=== PATIENT | female | born 1985 | race Caucasian/White ===

== ENCOUNTER 2020-09-01 15:07 | Outpatient (CLI) | payer OTHER, SELFPAY ==
[2020-09-01 15:35] LABS: Basophils Absolute Auto 0.1 K/mm3 (0.0-0.1); Basophils Percent Auto 0.7 % (0.2-1.2); Eosinophils Absolute Auto 0.1 K/mm3 (0-0.3); Eosinophils Percent Auto 1.3 % (0-4.4); Hematocrit 37.4 % (37.0-47.0); Hemoglobin 12.8 g/dL (12.0-15.0); Immature Granulocyte Absolute 0.02 K/mm3 (0.00-0.031); Immature Granulocyte Percent A 0.2 % (0-0.5); Lymphocytes Absolute Auto 1.79 K/mm3 (0.9-3.2); Lymphocytes Percent Auto 19.8 % (18.3-44.2); Mean Corpuscular HGB Conc 34.2 g/dl (32-36); Mean Corpuscular Hemoglobin 29.2 pg (26-34); Mean Corpuscular Volume 85.2 fl (80-100); Mean Platelet Volume 9.5 fl (7.4-10.4); Monocytes Absolute Auto 0.7 K/mm3 (0.1-0.6); Monocytes Percent Auto 7.4 % (2.6-8.5); Neutrophils Absolute Auto 6.4 K/mm3 (1.3-6.7); Neutrophils Percent Auto 70.6 % (45.5-73.1); Platelet Count Result 250 k/mm3 (150-375); Red Blood Count 4.39 M/mm3 (4.2-5.4); Red Cell Distribution Width 12.7 % (11.5-14.5)
[2020-09-01 15:45] LABS: Alanine Aminotransferase 17 U/L (4-35); Albumin Level 4.7 g/dL (3.5-5.1); Alkaline Phosphatase 34 U/L (38-126); Anion Gap 7 mmol/L (8-16); Aspartate Amino Transferase 33 U/L (14-36); Bilirubin,Total 0.4 mg/dL (0.2-1.3); Blood Urea Nitrogen 10 mg/dL (7-17); Calcium 9.8 mg/dL (8.4-10.2); Carbon Dioxide 28 mmol/L (22-30); Chloride 104 mmol/L (98-107); Estimated Glomerular Filt Rate > 60; Glucose 103 mg/dL (65-105); Potassium 3.9 mmol/L (3.4-5.0); Sodium 139 mmol/L (137-145)
[2020-09-01 16:19] LABS: Vitamin D 25 Hydroxy 50.3 ng/mL
[2020-09-01 16:33] LABS: Thyroid Stimulating Hormone Reflex 0.458 uIU/mL (0.465-4.68)
[2020-09-02 08:09] LABS: Free T4 Free Thyroxine Reflex 0.94 ng/dL (0.78-2.19)
[2020-09-02 10:32] LABS: Total Triiodothyronine (T3) 1.25 NG/ML (0.97-1.69)
== END 2020-09-01 15:08 | disposition home or self-care (01) ==
PROVIDERS: PCP Family Medicine; Visit Provider Nurse Practitioner
DX: D64.9 Anemia, unspecified (principal); Z13.6 Encounter for screening for cardiovascular disorders; R53.83 Other fatigue; E55.9 Vitamin D deficiency, unspecified
CPT/HCPCS: 36415; 80053; 82306; 84439; 84443; 84480; 85025

== ENCOUNTER 2020-11-28 13:38 | Outpatient (CLI) | payer OTHER, SELFPAY ==
--- NOTE | ~2020-11-28 | MMUS_ITS ---
EXAMINATION: MM diag patrick implant BI w felicia, US breast RT limited HISTORY: Palpable right breast abnormality. TECHNIQUE: Additional 3-D tomosynthesis images of the breasts were performed and synthetic 2-D images were generated. CAD analysis was submitted and interpreted. High resolution Limited right breast ult rasound was performed. COMPARISON: None BREAST PARENCHYMAL COMPOSITION: The breasts are heterogenously dense, which may obscure small masses FINDINGS: MAMMOGRAPHIC FINDINGS: There are bilateral subpectoral silicone implants. There are no suspicious masses, calcifications or architectural distortion in either breast to suggest malignancy. ULTRASOUND: Limited right breast ultrasound: Normal heterogeneous echotexture without focal solid or cystic mass. IMPRESSION: 1. No evidence for malignancy in either breast. 2. Recommend follow-up screening ultrasound at age 40. BI-RADS Category 1: Negative Reviewed, dictated and finalized at location A. IMPRESSION: 1. No evidence for malignancy in either breast. 2. Recommend follow-up screening ultrasound at age 40. BI-RADS Category 1: Negative
== END 2020-11-28 13:39 | disposition home or self-care (01) ==
PROVIDERS: PCP Family Medicine; Visit Provider Obstetrics & Gynecology
DX: N63.0 Unspecified lump in unspecified breast (principal)
CPT/HCPCS: 76642; 77062; 77066; G0279

== ENCOUNTER 2021-02-15 13:07 | Outpatient (CLI) | payer OTHER, SELFPAY ==
--- NOTE | ~2021-02-15 | US_ITS ---
EXAMINATION: US pelvic complete w TV DATE: 02/15/2021 13:36 INDICATION: Menorrhagia Comparison:Ultrasound dated 12/11/2018 TECHNIQUE: Multiple transabdominal and endovaginal sonographic images of the pelvis performed. FINDINGS: The uterus measures 9.9 x 4.6 x 5.4 cm. Within the endometrium there is an echogenic area m easuring 2 x 1 x 1.7 cm with internal vascularity, consistent with a polyp. The endometrial complex m easures 1.4 cm. The right ovary measures 2.6 x 1.9 x 2.1 cm and the left ovary measures 3.6 x 2.8 x 3.2 cm. There is a 2.4 cm left ovarian cyst. There are small follicles in each ovary. Normal doppler signal in both ov shira. There is no free fluid in the pelvis. There are no abnormal masses seen on either side. IMPRESSION: 1. Echogenic vascular endometrial mass measuring 2 x 1 x 1.7 cm, compatible with polyp. 2: Endometrial thickening measuring 1.4 cm. 3: Left ovarian cyst measuring 2.4 cm. Reviewed, dictated and finalized at location B. OMIC DEVELOPER IMPRESSION: 1. Echogenic vascular endometrial mass measuring 2 x 1 x 1.7 cm, compatible wit h polyp. 2: Endometrial thickening measuring 1.4 cm. 3: Left ovarian cyst measuring 2.4 cm.
== END 2021-02-15 13:08 ==
PROVIDERS: Visit Provider Obstetrics & Gynecology
DX: N92.0 Excessive and frequent menstruation with regular cycle (principal); N83.202 Unspecified ovarian cyst, left side
CPT/HCPCS: 76830; 76856

== ENCOUNTER → 2021-03-03 00:44 | Outpatient (CLI) | payer OTHER, SELFPAY ==
[2021-03-03 18:01] LABS: SARS-CoV-2 RNA PCR Negative (Negative)
== END ==
PROVIDERS: Nurse Practitioner Family; Visit Provider Obstetrics & Gynecology
DX: Z01.812 Encounter for preprocedural laboratory examination (principal); Z20.822 Contact with and (suspected) exposure to COVID-19
CPT/HCPCS: C9803; U0003; U0005

== ENCOUNTER 2021-03-07 00:41 | Day surgery (SDC) | payer OTHER, SELFPAY ==
[2021-03-02 12:55] VITALS: BMI 21.6
--- NOTE | 2021-03-02 13:01 | PC.NURSE ---
Report to the Outpatient Waiting Room, entrance under the green pavilion located off [facility], at time _0700 on date _03/07/21 . OR Time: __0900 . - You and your visitor will be asked a series of questions to screen for COVID 19 for your protection. - A mask is required within the hospital. - Only one visitor is allowed at this time. Patient visitors will be guided where to wait when not with patient. Preoperative COVID Testing Requirements: No COVID Test needed if: (proof is required; if not received patient will have Rapid Test prior to entry) - Patient has received COVID Vaccine at least 14 days prior to procedure date or - Patient has positive COVID test result within last 90 days of surgery date. COVID TESTING 03/03/21 AT 0840 COVID Test needed if above criteria is not met If not COVID vaccinated a COVID test must be conducted within 72 hours of surgery and patient is asked to isolate self from time of testing until procedure. You will go to the [facility] for your COVID testing. The [employer] [facility] Testing site is located at the corner of [address] [facility]. You will only be called if COVID results are positive and your surgeon may reschedule your elective surgery date. Patients may have clear liquids (water, carbonated beverages, clear teas, apple juice) until 3 hours prior to surgery with a maximum of 20 ounces. - No food from midnight until time of surgery - Infants may have breast milk until 4 hours before surgery, infant formula 6 hours prior to surgery. - Children will be allowed to drink immediately following surgery. If applicable, please bring a bottle or sippy cup to assist with drinking. Juice, water, soda, and popsicles are readily available. For infants on formula, please bring formula the day of surgery. Pacifiers are allowed. Take the following medications with a SIP of water the morning of surgery: ___FLUOXETINE Medications to discontinue per physician ___ALL VITAMINS AND SUPPLEMENTS 3 DAYS PRE OP Date to take last dose__03/03/21 Please no make-up, nail kazakh, hairspray, perfume, deodorant, or body powder the day of surgery. No jewelry (including any body piercings) or valuables the day of surgery, leave them at home. Please take a shower or bath the night before, or the morning of, surgery with an antibacterial soap. Wear comfortable, loose fitting clothing. Children are encouraged to wear pajamas. - Jewelry must be removed prior to entering the operating room. Rings and piercings that are not removed may be cut off. - The hospital will not accept responsibility for valuables. - Please leave all valuables, including medications, at home the day of surgery. If you are going home after surgery, a licensed mobile lounge driver or operator must drive you home. - NO public transportation without another adult. - We recommend that an adult stay with you for 24 hours following discharge. - We also recommend that you do not drive, make important decision, drink alcoholic beverages, or take any drugs that were not prescribed by your health care provider for at least 24 hours after your discharge time. For Pediatric surgeries, we recommend two adults accompany the child home (only one inside the building at this time). Follow any additional instructions given to you from your surgeon. Telephone instructions given to __PATIENT and asked if any additional questions and then verbalized understanding. Patient advised to call surgeon office or pre surgery nurse liaison [phone] if any additional questions.
--- NOTE | 2021-03-06 14:30 | PM.IMHP ---
H&P: HPI History of Present Illness Date/Time: 03/06/21 14:30 35 y/o with monthly heavy cycles, endometrial polyp on both ultrasound and EMBX Chief Complaint: menorrhagia, endometrial polyp Review of Systems Review of Systems: All systems reviewed & are unremarkable except as noted in HPI and below PMFSH Past Medical History Medical History x1 Anxiety Depression Herpes simplex virus (HSV) infection Iron deficiency anemia Missed x1 Surgery, elective labial reduction Vaginal delivery x2 Surgical History Surgical History History of breast augmentation Family History Family History Mother Family history of hypothyroidism Sibling Family history of hypothyroidism Father Family history of hyperthyroidism Grandparent Cerebrovascular accident Social History Social History Smoking packs per day: 0.5 Smoking cigarettes per day: 10.0 Years smoked: 10 Smoking pack-years: 5.00 Smoking status: Former smoker Tobacco type: cigarettes Smoking end date: 03/17/17 Alcohol intake: current Drinks per week: 2 Alcohol use details: 1-2 DRINKS PER MONTH Substance use: never 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 [employer] Gender identity (if verbalized by the patient): Female Spiritual care concerns: No Meds Home Medications and Allergies Home Medications Medication Instructions Recorded Confirmed Type ascorbic acid 125 mg-collagen, 1 cap PO DAILY 05/05/20 03/02/21 History hydrolyzed 740 mg capsule multivitamin 1 tablet PO DAILY 05/05/20 03/02/21 History valacyclovir 1 gram tablet 1,000 mg PO PRN PRN tablet 01/24/21 03/02/21 History fluoxetine 20 mg capsule 40 mg PO DAILY cap 02/27/21 03/02/21 History Allergies Allergy/AdvReac Type Severity Reaction Status Date / Time lavender (Lavandula Allergy Severe Anaphylaxis, Verified 03/02/21 12:40 angustifolia) Hives Exam Const: General: healthy appearing, no acute distress, alert and awake Resp: Auscultation: clear to auscultation bilaterally Cardio: Rate: regular rate Rhythm: regular rhythm GI: Inspection: non-distended GI Palp: Yes Soft to palpation and No Tenderness to palpation present (GI) : Bimanual exam- vagina & uterus: normal bimanual exam, uterine size normal, uterine mobility normal, non-tender and soft Bimanual Exam- Adnexa, other: normal adnexae, no masses and No adnexal tenderness Extrem: General: no pedal edema and no calf tenderness Psych: Mental Status: mental status grossly normal Assessment and Plan Assessment and plan (1) Menorrhagia: Code(s): N92.0 - Excessive and frequent menstruation with regular cycle Status: Acute Assessment and Plan: She signed consent for D&C, hysteroscopy, endometrial polypectomy, and endometrial ablation after risks, benefits, complications, and alternatives discussed. She expressed understanding and wishes to proceed (2) Polyp of corpus uteri: Code(s): N84.0 - Polyp of corpus uteri Status: Acute
--- NOTE | 2021-03-07 07:08 | WPDANESEPPF ---
Anes - Initial Pre Proc Eval Procedure: Operation Date: 03/07/21 09:00 Proposed Procedures p Hysteroscopy, Dilation and Curettage with Velia Endometrial Ablation, Endometrial Polypectomy with Myosure - Slime Santo MD Date/Time: 03/07/21 07:08 Surgeon: Slime Santo MD Pre Op Diagnosis: menorrhagia Patient Data Age: 35 Gender: F Height: 1.7 m Weight: 62.6 kg Allergies Allergy/AdvReac Type Severity Reaction Status Date / Time lavender (Lavandula Allergy Severe Anaphylaxis, Verified 03/02/21 12:40 angustifolia) Hives Home Medications Medication Instructions Recorded Confirmed Type ascorbic acid 125 mg-collagen, 1 cap PO DAILY 05/05/20 03/02/21 History hydrolyzed 740 mg capsule multivitamin 1 tablet PO DAILY 05/05/20 03/02/21 History valacyclovir 1 gram tablet 1,000 mg PO PRN PRN tablet 01/24/21 03/02/21 History fluoxetine 20 mg capsule 40 mg PO DAILY cap 02/27/21 03/02/21 History Patient hx anesthesia problems: none Family hx anesthesia problems: none Results Review: All pre-operative results and documents have been reviewed as part of the pre-operative evaluation. [facility] Past Medical History Medical History x1 Anxiety Depression Herpes simplex virus (HSV) infection Iron deficiency anemia Missed x1 Surgery, elective labial reduction Vaginal delivery x2 Surgical History Surgical History History of breast augmentation Family History Family History Mother Family history of hypothyroidism Sibling Family history of hypothyroidism Father Family history of hyperthyroidism Grandparent Cerebrovascular accident Social History Social History Smoking packs per day: 0.5 Smoking cigarettes per day: 10.0 Years smoked: 10 Smoking pack-years: 5.00 Smoking status: Former smoker Tobacco type: cigarettes Smoking end date: 03/17/17 Alcohol intake: current Drinks per week: 2 Alcohol use details: 1-2 DRINKS PER MONTH Substance use: never Living arrangements: with family 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 [employer] Gender identity (if verbalized by the patient): Female Spiritual care concerns: No Anes - Eval Final PreProcedure Day of Procedure 03/07/21 07:08 Patient weight: normal Heart: regular rate and rhythm Lungs: clear to auscultation and normal air movement Airway: Mallampati scale class II Neurological: alert and oriented Last oral intake: >/= 8 hours ASA classification: II Emergent: no Anesthetic plan: proceed Anesthesia type and monitoring: general GIVS Results Review: All pre-operative results and documents have been reviewed as part of the pre-operative evaluation. Informed Consent: The patient's anesthetic plan and its attendant risks and benefits were discussed with the patient/family/POA. Questions were solicited and answers provided to the satisfaction of the patient/family/POA.
[2021-03-07] MEDS: ACETAMINOPHEN 500 MG TABLET 1000 MG PO (07:47)
[2021-03-07] MEDS: LACTATED RINGERS 1,000 ML 30 ML IV CONT (08:00)
[2021-03-07 08:10] VITALS: BP 113/78; PULSE 72; RESP 18; TEMP 36.9; O2SAT 99
--- NOTE | 2021-03-07 08:40 | WPDHPUPDATE1 ---
History and Physical Update Update Date/Time: 03/07/21 08:40 History and Physical has been reviewed, including an updated exam of the patient. There are NO changes in the patient's condition. Risks, benefits, and alternatives have been discussed and questions answered. Patient agrees to proceed with procedure.
--- NOTE | 2021-03-07 08:48 | W.PM.PROC2 ---
Procedure Note - Detailed Date of Procedure 03/07/21 Pre-op Diagnosis menorrhagia, endometrial polyp Post-op Diagnosis same Procedure Performed D&C, hysteroscopy, endometrial polypectomy with MyoSure, Velia endometrial ablation Surgeon Slime Santo MD Anesthesia MAC Indications Heavy periods, polyp on U/S and endometrial biopsy Findings large endometrial polyp, otherwise normal endometrial cavity Description of Procedure She was taken to the operating room where she was sedated and placed in the dorsal lithotomy position. Speculum was placed in the vagina. The anterior lip of the cervix was grasped with a single-tooth tenaculum. The uterus sounded to 8 cm. The cervix was dilated to allow passage of the hysteroscope, which revealed a large endometrial polyp and otherwise normal-appearing endometrial cavity with both tubal ostia identified. The MyoSure scope and device were made ready. Under hysteroscopic visualization, the polyp was removed using a MyoSure device until the endometrial cavity was completely clear. The hysteroscope was removed. A 8. Hegar dilator was used to measure the endocervical canal at 2.5 cm, yielding a cavity length of 5.5 cm. The Velia device was introduced. The cavity assessment passed on the 1st attempt. The cycle ran for 2 minutes. The Velia device was removed. The hysteroscope was then replaced, and an excellent appearing ablation was visualized. The hysteroscope was removed. The tenaculum was removed. The left tenaculum site was bleeding slightly. Pressure was held with a ring forceps and then an Allis clamp until excellent hemostasis was assured. All instruments were removed from the vagina. Sponge, lap, and instrument counts were correct x2. She tolerated the procedure well. She was taken to the recovery room in stable condition. Estimated Blood Loss 10 Drains No Packing No Pathology yes Complications No immediate complications Condition stable Disposition PACU
[2021-03-07] MEDS: KETOROLAC 30 MG/ML VIAL (*BKC) IV PUSH (09:14)
[2021-03-07 09:50] VITALS: BP 102/63; PULSE 70; RESP 14; O2SAT 100
[2021-03-07 10:13] VITALS: BP 112/67; RESP 16
[2021-03-07 10:43] VITALS: BP 115/69; PULSE 65; RESP 16
[2021-03-07 10:50] VITALS: BP 108/65; PULSE 69; RESP 16
== END 2021-03-07 11:00 | disposition home or self-care (01) ==
PROVIDERS: PCP Family Medicine; Visit Provider Obstetrics & Gynecology
PROC: 0U5B8ZZ Destruction of Endometrium, Via Natural or Artificial Opening Endoscopic (ICD-10-PCS; CPT 58563; principal; 2021-03-07 09:00)
DX: N92.0 Excessive and frequent menstruation with regular cycle (principal); N84.0 Polyp of corpus uteri; D50.9 Iron deficiency anemia, unspecified; F41.8 Other specified anxiety disorders; B00.9 Herpesviral infection, unspecified; Z87.891 Personal history of nicotine dependence
CPT/HCPCS: 58563; 88305; A9270; C9803; J1100; J1885; J2250; J2405; J2704; J3010; J7030; J7120; U0003; U0005

== ENCOUNTER 2021-03-15 11:18 | Emergency (ER) | payer OTHER, SELFPAY ==
[2021-03-15 11:21] VITALS: BP 129/86; PULSE 105; RESP 14; TEMP 36.6; O2SAT 100
[2021-03-15 12:23] LABS: Basophils Absolute Auto 0.1 K/mm3 (0.0-0.1); Basophils Percent Auto 0.5 % (0.2-1.2); Eosinophils Absolute Auto 0.1 K/mm3 (0-0.3); Eosinophils Percent Auto 0.5 % (0-4.4); Hematocrit 38.9 % (37.0-47.0); Hemoglobin 13.1 g/dL (12.0-15.0); Immature Granulocyte Absolute 0.04 K/mm3 (0.00-0.031); Immature Granulocyte Percent A 0.4 % (0-0.5); Lymphocytes Absolute Auto 1.27 K/mm3 (0.9-3.2); Lymphocytes Percent Auto 12.5 % (18.3-44.2); Mean Corpuscular HGB Conc 33.7 g/dl (32-36); Mean Corpuscular Volume 83.1 fl (80-100); Mean Platelet Volume 9.3 fl (7.4-10.4); Monocytes Absolute Auto 0.7 K/mm3 (0.1-0.6); Monocytes Percent Auto 6.4 % (2.6-8.5); Neutrophils Absolute Auto 8.1 K/mm3 (1.3-6.7); Neutrophils Percent Auto 79.7 % (45.5-73.1); Platelet Count Result 324 k/mm3 (150-375); Red Blood Count 4.68 M/mm3 (4.2-5.4); Red Cell Distribution Width 12.8 % (11.5-14.5); White Blood Count 10.2 K/mm3 (4.5-10.0)
[2021-03-15 12:32] LABS: Alanine Aminotransferase 15 U/L (4-35); Albumin Level 4.9 g/dL (3.5-5.1); Alkaline Phosphatase 49 U/L (38-126); Anion Gap 9 mmol/L (8-16); Aspartate Amino Transferase 26 U/L (14-36); Bilirubin,Total 0.6 mg/dL (0.2-1.3); Blood Urea Nitrogen 11 mg/dL (7-17); Calcium 9.8 mg/dL (8.4-10.2); Carbon Dioxide 27 mmol/L (22-30); Chloride 99 mmol/L (98-107); Estimated CRCL calculation 104 ml/min; Estimated Glomerular Filt Rate > 60; Glucose 104 mg/dL (65-110); Potassium 4.2 mmol/L (3.4-5.0); Sodium 135 mmol/L (137-145)
[2021-03-15 12:44] LABS: Add Urine Microscopic? YES; Appearance Urine Cloudy (Clear); Bacteria Urine Trace /hpf; Bilirubin Urine Negative (Negative); Blood Urine 2+ (Negative); Color Urine Yellow (Yellow); Glucose Urine UA Negative (Negative); Ketones Urine Negative (Negative); Leukocyte Esterase Ur Negative LEU/UL (Negative); Mucus Urine Moderate /lpf; Nitrate Urine Negative (Negative); Protein Urine 3+ mg/dL (Negative); RBC Urine >75 /hpf (0-2); Squamous Epithelial Cell Urine Many /hpf (Few); Urobilinogen Urine Negative mg/dL (<2.0); WBC Urine 0-3 /hpf
[2021-03-15] MEDS: SODIUM CHLORIDE 0.9% IV 500 ML 999 ML IV CONT (13:03)
--- NOTE | 2021-03-15 14:18 | ED.NAVMDI ---
HPI - Nausea/Vomiting/Diarrhea General Chief complaint: Nausea/Vomiting/Diarrhea Stated complaint: vomiting Time Seen by Provider: 03/15/21 11:51 Source: patient and family Mode of arrival: ambulatory Limitations: no limitations History of Present Illness HPI Narrative: 35-year-old with a recent history of endometrial ablation here with complaints of nausea, vomiting, midsternal chest pain started few days ago after started taking doxycycline given by her INVESTOR RELATIONS DIRECTOR. Patient states that she is unable to eat or drink because of the pain. She denies any shortness of breath , cough or fever. MD elicited complaint: nausea and vomiting Pertinent past history: other (Endometrial ablation) Onset (ago): week(s) (1) Description of vomiting: watery Associated nausea: Yes Associated abdominal pain: No Related Data Home Medications Medication Instructions Recorded Confirmed multivitamin 1 tablet PO DAILY 05/05/20 03/07/21 fluoxetine 20 mg capsule 40 mg PO DAILY cap 02/27/21 03/07/21 famotidine [Pepcid] 20 mg PO DAILY 03/15/21 Allergies Allergy/AdvReac Type Severity Reaction Status Date / Time lavender (Lavandula Allergy Severe Anaphylaxis, Verified 03/15/21 11:24 angustifolia) Hives Review of Systems Review of Systems: All systems reviewed & are unremarkable except as noted in HPI and below Constitutional: Constitutional: Reports no additional constitutional complaints Eyes: Eyes: Reports no additional eye complaints ENT: Reports system reviewed and no additional complaints, except as documented Cardiovascular: Cardiovascular: Reports no additional cardiovascular complaints Respiratory: Respiratory: Reports no additional respiratory complaints Gastrointestinal: Gastrointestinal: Reports as per HPI Musculoskeletal: Musculoskeletal: Reports no additional musculoskeletal complaints [facility] Past Medical History Medical History x1 Anxiety Depression Herpes simplex virus (HSV) infection Iron deficiency anemia Missed x1 Surgery, elective labial reduction Vaginal delivery x2 Surgical History Surgical History History of breast augmentation Family History Family History Mother Family history of hypothyroidism Sibling Family history of hypothyroidism Father Family history of hyperthyroidism Grandparent Cerebrovascular accident Social History Social History Smoking packs per day: 0.5 Smoking cigarettes per day: 10.0 Years smoked: 10 Smoking pack-years: 5.00 Smoking status: Former smoker Tobacco type: cigarettes Smoking end date: 03/17/17 Alcohol intake: current Drinks per week: 2 Alcohol use details: 1-2 DRINKS PER MONTH Substance use: never 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 HEAD: Normocephalic, atraumatic. EYES: PERRLA and EOMI.t. NECK: Supple. CHEST: Clear to auscultation. No respiratory distress. HEART: Regular rate and rhythm. No murmur heard. Normal peripheral pulses. ABDOMEN: Soft, nontender, nondistended, normal active bowel sounds. EXTREMITIES: Normal range of motion. No edema. SKIN: Warm, dry, no rash. NEURO: No focal deficits. Alert and oriented x3. PSYCH: Normal mood and affect. Course Course Emergency Course: Inform patient and her about her lab work. She feels much improved and better after IV fluids. Advised her to start taking Nexium and Zofran as needed for nausea. She does feel comfortable going home Vital Signs Vital signs: Vital Signs Temperature 36.6 C 03/15/21 11:21 Pulse Rate 105 H
[2021-03-15 14:37] VITALS: BP 124/76; PULSE 98; RESP 16; O2SAT 99
== END 2021-03-15 14:37 | disposition home or self-care (01) ==
PROVIDERS: Emergency Provider Family Medicine; PCP Family Medicine
DX: K29.00 Acute gastritis without bleeding (principal); F41.9 Anxiety disorder, unspecified; F32.A Depression, unspecified; D50.9 Iron deficiency anemia, unspecified; Z87.891 Personal history of nicotine dependence
CPT/HCPCS: 36415; 80053; 81001; 85025; 96360; 99283; J7040

== ENCOUNTER 2021-04-10 12:08 | Outpatient (CLI) | payer OTHER, SELFPAY ==
--- NOTE | ~2021-04-10 | US_ITS ---
EXAMINATION: US breast LT limited HISTORY: History of fluid around the left breast implant TECHNIQUE: Limited ultrasound of the left breast is performed. FINDINGS: No fluid is identified surrounding the breast implant. The imaged portions of the breast im plant appear normal. IMPRESSION: No fluid identified surrounding the breast implant. BI-RADS Category 1: Negative Reviewed, dictated and finalized at location A. MENT LETTERER
== END 2021-04-10 12:09 | disposition home or self-care (01) ==
PROVIDERS: PCP Family Medicine
DX: N64.4 Mastodynia (principal)
CPT/HCPCS: 76642

== ENCOUNTER 2023-01-28 11:28 | Outpatient (CLI) | payer BC, SELFPAY ==
[2023-01-28 18:28] LABS: Alanine Aminotransferase 21 U/L (6-35); Albumin Level 4.7 g/dL (3.5-5.1); Alkaline Phosphatase 39 U/L (38-126); Anion Gap 11 mmol/L (8-16); Aspartate Amino Transferase 40 U/L (14-36); Bilirubin,Total 0.8 mg/dL (0.2-1.3); Blood Urea Nitrogen 11 mg/dL (7-17); Calcium 9.7 mg/dL (8.4-10.2); Carbon Dioxide 26 mmol/L (22-30); Chloride 101 mmol/L (98-107); Cholesterol 250 mg/dL (0-200); Estimated Glomerular Filt Rate > 60; Glucose 91 mg/dL (65-110); HDL Direct 60 mg/dL; Potassium 3.9 mmol/L (3.4-5.0); Sodium 138 mmol/L (137-145); Triglycerides 93 mg/dL (<150)
[2023-01-28 18:38] LABS: Basophils Absolute Auto 0.1 K/mm3 (0.0-0.1); Basophils Percent Auto 0.9 % (0.2-1.2); Eosinophils Absolute Auto 0.1 K/mm3 (0-0.3); Eosinophils Percent Auto 1.6 % (0-4.4); Hematocrit 39.8 % (37.0-47.0); Hemoglobin 13.3 g/dL (12.0-15.0); Immature Granulocyte Absolute 0.02 K/mm3 (0.00-0.031); Immature Granulocyte Percent A 0.3 % (0-0.5); Lymphocytes Absolute Auto 1.41 K/mm3 (0.9-3.2); Lymphocytes Percent Auto 24.4 % (18.3-44.2); Mean Corpuscular HGB Conc 33.4 g/dl (32-36); Mean Corpuscular Hemoglobin 29.8 pg (26-34); Mean Platelet Volume 9.6 fl (7.4-10.4); Monocytes Absolute Auto 0.5 K/mm3 (0.1-0.6); Monocytes Percent Auto 7.8 % (2.6-8.5); Neutrophils Absolute Auto 3.8 K/mm3 (1.3-6.7); Platelet Count Result 266 k/mm3 (150-375); Red Blood Count 4.47 M/mm3 (4.2-5.4); Red Cell Distribution Width 12.2 % (11.5-14.5); White Blood Count 5.8 K/mm3 (4.5-10.0)
[2023-01-28 18:40] LABS: LDL Cholesterol Direct 157 mg/dL
[2023-01-28 18:49] LABS: Iron 171 ug/dL (37-170)
[2023-01-28 19:01] LABS: Percent Iron Saturation 53 % (20-50)
[2023-01-28 19:35] LABS: Hemoglobin A1C 4.5 % (<5.7)
== END 2023-01-28 11:29 | disposition home or self-care (01) ==
LOC: ANHGOSHLAB 11:29
PROVIDERS: PCP Family Medicine; Visit Provider Nurse Practitioner Family
DX: Z00.00 Encounter for general adult medical examination without abnormal findings (principal); D64.9 Anemia, unspecified; Z13.220 Encounter for screening for lipoid disorders; Z13.29 Encounter for screening for other suspected endocrine disorder
CPT/HCPCS: 36415; 80053; 80061; 83036; 83540; 83550; 84443; 85025

== ENCOUNTER 2023-01-31 10:15 | Outpatient (CLI) | payer BC, SELFPAY ==
[2023-01-31 18:54] LABS: Erythrocyte Sedimentation Rate 8 mm/hr (0-20)
[2023-01-31 18:56] LABS: Alanine Aminotransferase 23 U/L (6-35); Albumin Level 4.6 g/dL (3.5-5.1); Alkaline Phosphatase 42 U/L (38-126); Aspartate Amino Transferase 35 U/L (14-36); Magnesium 2.1 mg/dL (1.6-2.3)
[2023-01-31 19:02] LABS: Free T4 Free Thyroxine 1.39 ng/mL (0.78-2.19); Vitamin D 25 Hydroxy 28.4 ng/mL
[2023-01-31 19:08] LABS: Rheumatoid Factor < 12.0 IU/ML (<12)
[2023-01-31 19:15] LABS: Thyroid Stimulating Hormone 0.382 uIU/mL (0.465-4.680)
[2023-02-06 05:44] LABS: Anti Nuclear Antibody Pattern Nuclear, Speckled
== END 2023-01-31 10:16 | disposition home or self-care (01) ==
LOC: ANHGOSHLAB 10:17
PROVIDERS: PCP Family Medicine; Visit Provider Nurse Practitioner Family
DX: Z00.00 Encounter for general adult medical examination without abnormal findings (principal); Z13.29 Encounter for screening for other suspected endocrine disorder; R53.83 Other fatigue; A69.20 Lyme disease, unspecified; E53.8 Deficiency of other specified B group vitamins; E55.9 Vitamin D deficiency, unspecified; G25.81 Restless legs syndrome; L65.9 Nonscarring hair loss, unspecified; M25.50 Pain in unspecified joint
CPT/HCPCS: 36415; 80076; 82306; 82607; 83735; 84439; 84443; 85652; 86038; 86039; 86430; 86617; 86618

== ENCOUNTER 2023-09-12 12:35 | Outpatient (CLI) | payer BC, SELFPAY ==
[2023-09-12 19:36] LABS: Hematocrit 37.7 % (37.0-47.0); Hemoglobin 12.9 g/dL (12.0-15.0); Mean Corpuscular HGB Conc 34.2 g/dl (32-36); Mean Corpuscular Hemoglobin 29.9 pg (26-34); Mean Corpuscular Volume 87.3 fl (80-100); Platelet Count Result 267 k/mm3 (150-375); Red Blood Count 4.32 M/mm3 (4.2-5.4); White Blood Count 7.9 K/mm3 (4.5-10.0)
[2023-09-12 20:15] LABS: Hepatitis B Surface Antigen Negative (Negative); Thyroid Stimulating Hormone 0.775 uIU/mL (0.465-4.680)
[2023-09-12 20:21] LABS: HAV RESULT Negative (Negative); Hepatitis B Core IgM Result Negative (Negative)
[2023-09-12 20:33] LABS: Hepatitis C Virus Antibody Negative (Negative)
[2023-09-13 17:53] LABS: LH 3.6 mIU/mL
[2023-09-16 11:28] LABS: Testosterone Total 21 ng/dL (2-45)
[2023-09-18 00:43] LABS: Estrone 51 pg/mL
[2023-09-24 14:49] LABS: Aspergillus Fumigatus K/UL <0.10 kU/L; Conventional Class 0
== END 2023-09-12 12:36 | disposition home or self-care (01) ==
LOC: ANHGOSHLAB 12:38
PROVIDERS: PCP Family Medicine; Visit Provider Nurse Practitioner Family
DX: R53.83 Other fatigue (principal); D64.9 Anemia, unspecified; Z77.120 Contact with and (suspected) exposure to mold (toxic); Z20.5 Contact with and (suspected) exposure to viral hepatitis
CPT/HCPCS: 36415; 80074; 82679; 83002; 84403; 84443; 85027; 86003

== ENCOUNTER 2024-01-08 09:59 | Outpatient (CLI) | payer BC, SELFPAY ==
--- NOTE | 2024-04-06 13:55 | P.SLEEP_ITS ---
Sleep Study - Home Unattended Date of Study: 01/08/24 Ordering Provider: Pamela Velazquez APRN Interpreting Provider: Yarely Gee, DO Home Sleep Study Type: Watch PAT Height: 1.7 m Weight: 70.307 kg Body Mass Index: 24.3 Neck Circumference (inches): 13 Reason for Sleep Study Daytime hypersomnia Sleep History The patient is a 38-year-old female that had a sleep study ordered by her primary care for evaluation of sleep apnea. The patient admits to snoring loudly, excessive daytime sleepiness, interruptions in breathing while asleep he and unwanted behaviors during sleep. The patient admits to choking or gasping at night. She admits to having trouble breathing on her back. She does have morning headaches. She does have a dry or sore mouth/ throat in the morning. She denies nocturnal heartburn. She denies nocturia. She denies having difficulty falling asleep or staying asleep. She denies having difficulty returning to sleep if she wakes up throughout the night. She denies any hypnotic or sedative use. She denies feeling anxious about sleep. She does feel tired or sleepy during the day. She does feel tired in the morning. She does have the urge to fall asleep during the day. She does feel drowsy while driving. She denies sleep paralysis. She does have muscle weakness with strong emotion. She does have hallucinations or dreamlike images when falling asleep or waking up. She does dreams during daytime naps. She does clench or grind her teeth. She does kick her jerk her legs excessively. She does have a restless feeling in her legs that gets worse with rest. She does have the urge to move her legs when she has a restless feeling. Her legs do not get better with activity. She states the restless feeling is worse in the evening and does cause a disturbance in her sleep. She goes to bed at 10:00 p.m. on work days and at 11:00 p.m. on her days off. It takes her 30 minutes to fall asleep on work days and 15 minutes on her days off. She states that her sleep is not at all restorative on her days off. She denies taking any planned naps. She states that she does act out her dreams. She does sleep walk as an adult. She consumes 1-2 cups of caffeinated beverage per day. She denies alcohol and tobacco use. She exercises 1-2 nights per week. [facility] Past Medical History Medical History Loud snoring Hypersomnia Contact with and (suspected) exposure to mold (toxic) Restless leg Hair loss Joint pain Annual visit for general adult medical examination without abnormal findings Polyp of corpus uteri Vaginal delivery x2 Iron deficiency anemia Anxiety Herpes simplex virus (HSV) infection Lesion of vulva Polyp of corpus uteri x1 Surgical History Surgical History History of endometrial ablation 03/07/21, w/ Velia History of surgery of uterus 03/07/21, endometrial polypectomy w/ Myosure History of hysteroscopy 03/07/21 History of dilation and curettage 03/07/21 History of breast augmentation Surgery, elective labial reduction Family History Family History Mother Family history of hypothyroidism Sibling Family history of hypothyroidism Father Family history of hyperthyroidism Grandparent Cerebrovascular accident Father Hyperthyroidism Mother Hypothyroidism Other Nnamdi's disease aunt Social History Social History Smoking packs per day: 0.5 Smoking cigarettes per day: 10.0 Years smoked: 10 Smoking pack-years: 5.00 Smoking status: Former smoker Tobacco type: cigarettes Smoking end date: 03/17/17 Alcohol intake: current Drinks per week: 2 Alcohol use details: 1-2 DRINKS PER MONTH Substance use: never Substance use type: does not use Lack of Transportation: No Lack of Food: Never True Current Housing: I Have Housing Concerned About Future Housing: No Difficulty Paying Gas/Electric Bills: No Difficulty Paying for Meds: No Currently Unemployed: No Education: Associate Degree Difficulty w/ Childcare or Family Care: No Living arrangements: with family 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 [employer] Gender identity (if verbalized by the patient): Female Sexual Orientation (if Verbalized by the Patient): Straight or Heterosexual Spiritual care concerns: No Agree to blood products: Yes Medications Home Medications ?Medication ?Instructions ?Recorded ?Confirmed ?Type fluoxetine 60 mg tablet 30 mg PO DAILY 10/15/23 10/15/23 History Sleep Procedure The sleep study was completed using [employer] a technically adequate device with seven channels: peripheral arterial tone, actigraphy, body position, snore, respiratory movement, pulse oximetry, sleep staging, and heart rate. Prior to using the device, the patient received verbal and written instructions for its application and was provided with the help desk phone number for additional telephonic instruction with 24-hour availability of qualified personnel to answer questions. The study was scored using CMS guidelines. Sleep Architecture The total recording time is 9 hrs, 21 min. The total sleep time is 8 hrs, 35 min. Sleep latency is 19 minutes. REM latency is 90 minutes. The patient had 5 episodes of waking. Sleep architecture shows 17.9% deep sleep, 54.5% light sleep, and (as % Total Sleep Time) showed NREM (Light 54.5%; Deep 17.9%), and a 27.5% stage REM. The patient spent 28.6% of total sleep time in the supine position. Sleep efficiency was 91.80. Respiratory Analysis The overall AHI (pAHI 3%:) is 5.4. The central AHI is 1.6. The AHI was 5.0 in NREM and 6.4 in REM sleep. The AHI was 9.0 in Supine and 3.9 in Non-supine sleep. Percent of David Deng respirations is 0.0. Oximetry Data The oxygen desaturation index (MARINA 4%:) is 2.0. The mean saturation is 96%, and the lowest saturation is 92%. Time spent with saturation < 88% is 0.0 minutes. Snoring Profile Snoring average intensity is 42 dB. The patient snored above 45 decibels for 63.2 minutes, 12.3% of sleep time. Cardiac Profile The average pulse rate is 80 beats per minutes. The lowest pulse rate is 58 bpm. The highest pulse rate reported is 105 bpm. Atrial fibrillation was not detected. Premature beats occur <0.1 per minute. Assessment and Plan Assessment and Plan (1) CYNTHIA (obstructive sleep apnea): Code(s): G47.33 - Obstructive sleep apnea (adult) (pediatric) Status: Acute Assessment and Plan: The patient had an overall AHI of 5.4 with desaturation down to 92%. This is consistent with mild sleep apnea. Due to the patient's anxiety, she qualifies for treatment. I recommend that the patient be prescribed AutoPAP 5-15 cm H2O, CPAP mask/filters/tubing and heated humidity. Alternatively, the patient would also be a candidate for a mandibular advancement device. This should be used with all episodes of sleep.? Compliance should be reviewed within 31-90 days of starting therapy for usage greater than 4 hours per night greater than 70% of the nights. The patient should be asked about symptoms such as?excessive daytime sleepiness, quality of sleep, decreased nocturia, incre ased?mental functioning such as memory, mood, and concentration. The patient's sleep history is suggestive of Restless Leg Syndrome. I recommend that the patient have a serum ferritin drawn for evaluation of iron deficiency anemia. If the patient has a serum ferritin less than 75 ng/mL, I recommend starting a daily iron supplement and a Vitamin C supplement for better absorption. If the serum ferritin is greater than 75 ng/mL, I recommend starting a dopamine agonist and titrating the dose until symptoms resolve. There are nonpharmacological methods to treat limb movements including daily exercise, stretching calf muscles before bed, avoiding excessive amounts of caffeine and alcohol, vitamin B supplementation, magnesium lotion massaged into legs before bed, and use of a weighted blanket. Data The data obtained during this sleep study is adequate for interpretation. Certification This sleep study has been reviewed by a board certified sleep medicine physician.
[2024-04-06 17:09] VITALS: BMI 24.3
== END 2024-04-02 14:34 | disposition home or self-care (01) ==
LOC: ANHCSM 10:02
PROVIDERS: PCP Family Medicine; Visit Provider Nurse Practitioner Family
DX: G47.33 Obstructive sleep apnea (adult) (pediatric) (principal)
CPT/HCPCS: 95800